=== PATIENT | male | born 1955 | race Caucasian/White ===

== ENCOUNTER 2017-06-28 20:34 | Emergency (ER) | payer OTHER ==
[~2017-06-28] VITALS: Ht 180.3 cm; Wt 142.9 kg
[2017-06-28 20:52] VITALS: BP 126/60; PULSE 61; RESP 18; TEMP 98.1; O2SAT 96
[2017-06-28] MEDS ORDERED: CLINDAMYCIN 900 MG/NS PREMIX 50 ML IV ONE (21:45)
--- NOTE | 2017-06-28 21:50 | PD ---
HPI Chief Complaint: Skin Problem Time Seen by Provider: 21:14 Travel History International Travel<30 days: No Contact w/Intl Traveler<30days: No Traveled to known affect area: No History of Present Illness HPI Patient comes in and states that over the last 2 days he has noted increased redness to his lower extremities which normally are swollen because of his CHF. Patient states that he is down here for bike week from [place], he has his regular Lasix medication and all other medications as prescribed, and is not out of any of them. Patient is only here because usually when he gets this redness to his lower extremities he has to end up getting on antibiotics so that he does not end up being admitted. Patient denies any associated factors such as fever, headache, chest pain, abdominal pain, back pain, leg pain, cough , runny nose. Patient states he has no known drug allergies Past medical history significant for diabetes, hypertension, CHF, and he gets frequent lower extremity infections PFSH Past Medical History Congestive Heart Failure: Yes Diabetes: Yes Patient Takes Glucophage: Yes Tetanus Vaccination: Unknown Influenza Vaccination: No Social History Alcohol Use: No Tobacco Use: No Substance Use: Yes (Marijuana, Daily ) Allergies-Medications (Allergen,Severity, Reaction): Coded Allergies: No Known Allergies (Verified Allergy, Unknown, 06/28/17) Reported Meds & Prescriptions Reported Meds & Active Scripts Active Review of Systems General / Constitutional: No: Fever Eyes: No: Visual changes HENT: No: Headaches Cardiovascular: No: Chest Pain or Discomfort Respiratory: No: Shortness of Breath Gastrointestinal: No: Abdominal Pain Genitourinary: No: Dysuria Musculoskeletal: No: Pain Skin: Positive Other (See HPI) Neurologic: No: Weakness Psychiatric: No: Depression Endocrine: No: Polydipsia Hematologic/Lymphatic: No: Easy Bruising Physical Exam Narrative GENERAL: [-] SKIN: Focused skin assessment warm/dry. Bilateral lower extremity from a distal tib-fib to mid fib area shows erythema, warmth, no fluctuance, no streaking, consistent with cellulitis. HEAD: Atraumatic. Normocephalic. EYES: Pupils equal and round. No scleral icterus. No injection or drainage. ENT: No nasal bleeding or discharge. Mucous membranes pink and moist. NECK: Trachea midline. No JVD. CARDIOVASCULAR: Regular rate and rhythm. No murmur appreciated. RESPIRATORY: No accessory muscle use. Clear to auscultation. Breath sounds equal bilaterally. GASTROINTESTINAL: Abdomen soft, non-tender, nondistended. MUSCULOSKELETAL: No obvious deformities. No clubbing. No cyanosis. Bilateral lower extremity 3+ edema. NEUROLOGICAL: Awake and alert. No obvious cranial nerve deficits. Motor grossly within normal limits. Normal speech. PSYCHIATRIC: Appropriate mood and affect; insight and judgment normal. Data Data Last Documented VS Vital Signs Date Time Temp Pulse Resp B/P (MAP) Pulse Ox O2 Delivery O2 Flow Rate FiO2 06/28/17 20:52 98.1 61 18 126/60 (82) 96 Orders Orders Complete Blood Count With Diff (06/28/17 21:43) Basic Metabolic Panel (Bmp) (06/28/17 21:43) Iv Access Insert/Monitor (06/28/17 21:43) Clindamycin 900 Mg/Ns Premix (Cleocin 90 (06/28/17 21:45) Us Leg Venous Doppler Bilat (06/29/17 21:43) Labs Laboratory Tests Test 06/28/17 21:58 White Blood Count 12.5 TH/MM3 Red Blood Count 5.70 MIL/MM3 Hemoglobin 15.4 GM/DL Hematocrit 46.9 % Mean Corpuscular Volume 82.2 FL Mean Corpuscular Hemoglobin 26.9 PG Mean Corpuscular Hemoglobin Concent 32.8 % Red Cell Distribution Width 17.5 % Platelet Count 265 TH/MM3 Mean Platelet Volume 8.3 FL Neutrophils (%) (Auto) 74.1 % Lymphocytes (%) (Auto) 13.9 % Monocytes (%) (Auto) 5.7 % Eosinophils (%) (Auto) 3.7 % Basophils (%) (Auto) 2.6 % Neutrophils # (Auto) 9.3 TH/MM3 Lymphocytes # (Auto) 1.7 TH/MM3 Monocytes # (Auto) 0.7 TH/MM3 Eosinophils # (Auto) 0.5 TH/MM3 Basophils # (Auto) 0.3 TH/MM3 CBC Comment DIFF FINAL Differential Comment Blood Urea Nitrogen 14 MG/DL Creatinine 0.82 MG/DL Random Glucose 108 MG/DL Calcium Level 8.7 MG/DL Sodium Level 139 MEQ/L Potassium Level 3.5 MEQ/L Chloride Level 100 MEQ/L Carbon Dioxide Level 32.4 MEQ/L Anion Gap 7 MEQ/L Estimat Glomerular Filtration Rate 95 ML/MIN MDM Medical Decision Making Medical Screen Exam Complete: Yes Emergency Medical Condition: Yes Medical Record Reviewed: Yes Differential Diagnosis Cellulitis versus abscess versus DVT Narrative Course CBC shows white count of 12.5, mild left shift of 74%, no anemia, normal platelet count. Chemistry profile shows electrolytes are within normal limits, normal kidney function, and random glucose of 108. Ultrasound read by radiologist as negative for DVT. Patient is ambulatory, nontoxic, tolerating p.o. and will be discharged on prescription. Patient was given IV dose of antibiotics while in emergency department. Diagnosis Primary Impression: Bilateral lower extremity cellulitis Patient Instructions: Cellulitis (ED), General Instructions Scripts Sulfamethoxazole-Trimethoprim (Bactrim DS) 800-160 Mg Tab 1 TAB PO BID for Infection, #20 TAB 0 Refills Prov: Edmund Burnett MD 06/29/17 Disposition: 01 DISCHARGE HOME Condition: Stable Edmund Burnett MD Jun 28, 2017 21:50
[2017-06-28 22:07] LABS: AUTOMATED NEUTROPHIL # 9.3 TH/MM3 (1.8-7.7); BASOPHIL # 0.3 TH/MM3 (0-0.2); BASOPHIL % 2.6 % (0.0-2.0); EOSINOPHIL # 0.5 TH/MM3 (0-0.4); EOSINOPHIL % 3.7 % (0.0-4.0); HEMATOCRIT 46.9 % (39.0-51.0); HEMOGLOBIN 15.4 GM/DL (13.0-17.0); LYMPH % 13.9 % (9.0-44.0); LYMPHOCYTE # 1.7 TH/MM3 (1.0-4.8); MEAN CELL VOLUME 82.2 FL (80.0-100.0); MEAN CORPUSCULAR HEMOGLOBIN 26.9 PG (27.0-34.0); MEAN CORPUSCULAR HGB CONC 32.8 % (32.0-36.0); MEAN PLATELET VOLUME 8.3 FL (7.0-11.0); MONO % 5.7 % (0.0-8.0); MONOCYTE # 0.7 TH/MM3 (0-0.9); NEUT % 74.1 % (16.0-70.0); PLATELET COUNT 265 TH/MM3 (150-450); RED CELL DISTRIBUTION WIDTH 17.5 % (11.6-17.2); WHITE BLOOD COUNT 12.5 TH/MM3 (4.0-11.0)
[2017-06-28 22:18] LABS: BICARBONATE 32.4 MEQ/L (21.0-32.0); CALCIUM 8.7 MG/DL (8.5-10.1)
[2017-06-28 22:22] LABS: CREATININE 0.82 MG/DL (0.60-1.30)
--- NOTE | 2017-06-29 01:05 | RADRPT ---
EXAM DATE/TIME: 06/29/2017 00:32 [facility] COMPARISON: No previous studies available for comparison. INDICATIONS : Bilateral leg swelling. MEDICAL HISTORY : Congestive heart failure. Diabetes. SURGICAL HISTORY : None. ENCOUNTER: Initial ACUITY: 2 day PAIN SCORE: 0/10 LOCATION: Bilateral legs TECHNIQUE: Venous ultrasound of the left and right leg was performed from the inguinal ligament to the proximal calf. Real-time, color Doppler and spectral tracing, compression and augmentation techniques were us ed. FINDINGS: RIGHT LEG: There is normal compressibility of the deep venous system from the inguinal region to the proximal ca lf. No echogenic clot is seen in the lumen of the common femoral, femoral, popliteal, and posterior tibial veins. There is a normal response of the venous system to proximal and distal augmentation an d respiration. LEFT LEG: There is normal compressibility of the deep venous system from the inguinal region to the proximal ca lf. No echogenic clot is seen in the lumen of the common femoral, femoral, popliteal, and posterior tibial veins. There is a normal response of the venous system to proximal and distal augmentation an d respiration. CONCLUSION: Normal examination. Uvaldo Dey Jr., MD on June 29, 2017 at 1:02 Board Certified Radiologist. This report was verified electronically.
[2017-06-29] MEDS ORDERED: BACT800T5 PO (01:07)
[2017-06-29 01:22] VITALS: BP 154/58
== END 2017-06-29 02:03 | disposition home or self-care (01) ==
LOC: PHED 20:34
DX: L03.115 Cellulitis of right lower limb (principal); L03.116 Cellulitis of left lower limb; F12.90 Cannabis use, unspecified, uncomplicated; I50.9 Heart failure, unspecified; M79.89 Other specified soft tissue disorders
CPT/HCPCS: 80048; 85025; 93970; 96374